=== PATIENT | male | born 1950 | race Caucasian/White ===

== ENCOUNTER → 2017-03-14 | Outpatient (CLI) | payer OTHER ==
--- NOTE | 2017-03-14 12:51 | DI ---
Indication: [email or web address]: DX TESTING PROCEDURE: LUMBAR SPINE 3 VIEWS: Encounter: Initial Comparison: None Findings: Levoscoliosis of the lumbar spine. Severe bony demineralization limiting detection of nondisplaced fractures. There is apparent mild superior endplate deformity at L2 of uncertain age. Evidence of posterior decompression laminectomy at the L4 level. Moderate disk space narrowing at L4-L5. Remaining disk spaces are maintained. Large amount of stool noted incidentally. Impression: Degenerative changes with age indeterminate mild superior endplate compression fracture of L2. .
--- NOTE | 2017-03-14 12:52 | DI ---
Indication: [email or web address]: DX TESTING PROCEDURE: THORACIC SPINE 2 VIEW: Encounter: Initial Comparison: None Findings: Dextroscoliosis of the thoracic spine. No acute fracture or subluxation seen. The vertebral body heights are maintained. Mild disk space narrowing and osteophyte formation seen at the T11 and T12 levels. Moderate degenerative disk disease noted in the mid to lower cervical spine as well. Impression: Scoliosis. .
== END ==
LOC: IMA 11:45
DX: Z02.89 Encounter for other administrative examinations (principal)